=== PATIENT | female | born 1950 ===

== ENCOUNTER 2023-09-01 13:45 | Outpatient (RCR) | payer MEDICARE, OTHER, SELFPAY ==
--- NOTE | 2023-07-31 16:40 | ST.OPIE ---
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 Bashir Antonio Reason for Referral Dysphonia Setting Setting Outpatient Care Patient History Patient History Pt is a 73 year old female seen this date foor voice evaluation. She was referred d /t throat irritation and vocal hoarseness that has been occurring on and off for a couple years. PMHx signficant for anxiety. She was referred by an ENT who reports no evidence of malignancy or morbid diseases from the level of the vocal cords superiorly and suspects hoarsness and irritation may be d/t incompletely treated reflux. She lives at home with her . [place] Langauge Language(s) Spoken in the Home [place] first language, primarily speaks in [place] Occupational Status Occupation Status Retired Previous Therapy Previous Speech-Language Therapy No Subjective Subjective Pt reports voice issues have been occurring on and off for about 1-2 years, with mild hoarseness, throat irritation pointing to her mid neck or at the level of the sternal notch. She states a tickle will lead to a cough 2 or 3 times per day where she has to gargle salt water to resolve it. She states she has a low voice and has trouble projecting. She states that her voice will become more hoarse and irritated the more she talks, which causes her pain. She states her throat pain will be around a 6/10. She reports she took a medication for reflux for 2 weeks and has not seen improvements and currently does not take any other meds for GERD. She denies hx of drinking or smoking and consumes water throughout the day and 1 decaf tea. She states she was educated by the ENT on reflux precautions and eats a healthy diet, walks daily and sleeps with a wedge. She reports her voice issue hasn't necessarily caused any changes in her social life, however she states it makes her personally uncomfortable. - Laryngeal Performance S/Z Ratio S/Z Ratio 1.5 Functional for Speech Yes Reduced Laryngeal Function Relative to Yes Respiration Voice Handicap Index Function Subtotal 20 Physical Subtotal 17 Emotional Subtotal 11 Total Score 48 Severity Moderate (31-60) Maximum Phonation Time MPT Norms: Women (15-25) Men (25-35) Loudness (50-60 dB); Speaking Rate: Oral Reading of Sentences (190 Words Per Minute); Oral Reading of Paragraphs (160-170 WPM); Speaking Rate in Conversation (150-250 WPM) Maximum Phonation Time About 6 seconds Maximum Phonation Time Reduced Maximum Phonation Time Comments Pt demonstrated MPT of around 6 seconds with cues to take a deep breath through her nose and sustain /ah/ as long as she can. Norms for women range from 15-25 seconds. She denies ever feeling SOB. 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 S:Z ratio may also indicate potential vocal pathology. She scored 48 on the voice handicap index, indicating a severity rating of moderate in regards to how her voice impact different aspects of her daily life. She specifically reported that she almost always tends to avoid groups of people because of her voice, speaks to friends, neighbors or relatives less often because of her voice, feels as through she as to strain to produce voice and notices her voice is worse in the evening. Her voice is characterized by slight hoarseness, and low volume. Prognosis Rehabilitation Potential Excellent - Recommendations Treatment Recommended Yes Treatment Frequency/Duration 1x/week for [address] recommends Pt participate in voice therapy in order to be educated on vocal hygiene techniques, reflux precautions , vocal function exercises, circumlaryngeal massage and diaphragmatic breathing techniques Short Term Goals STG 1: Pt will identify healthy voice alternatives and ways to promote vocal health in 100% of opportunities. STG 2: Patient will complete vocal exercises (i.e. vocal glides, phonation sustains, diaphragmatic breathing) to improve vocal quality and patient's overall intelligibility of verbal communication. STG 3: Patient will demonstrate knowledge with reflex precautions with 100% accuracy independently. STG 4: Patient will utilize circumlaryngeal massage technique independently with 100% accuracy. Usp Goals LTG 1: Pt will improve vocal quality with use of vocal hygiene/reflux precautions as well as vocal exercises and relaxation exercises. Patient/Caregiver Education Patient/Family Education Described results of evaluation,Patient Understanding
--- NOTE | 2023-07-31 16:41 | ST.OP.POCP ---
Physical, Occupational & Speech Therapy At [facility] Visit Care Team Role Provider Type Bashir Antonio MD Attending Provider Physician Referring Provider Address: [address] [place] [address] [place], [id number] Speech Pathology Plan of Care Patient History Pt is a 73 year old female seen this date foor voice evaluation. She was referred d/t throat irritation and vocal hoarseness that has been occurring on and off for a couple years. PMHx signficant for anxiety. She was referred by an ENT who reports no evidence of malignancy or morbid diseases from the level of the vocal cords superiorly and suspects hoarsness and irritation may be d/t incompletely treated reflux. She lives at home with her . [place] Goals LTG 1: Pt will improve vocal quality with use of vocal hygiene/reflux precautions as well as vocal exercises and relaxation exercises. Electronically Signed by: SHEILA Sheth 07/31/23 [id number] If you are in agreement with this Plan of Care, please return a signed and dated copy. I have reviewed this Plan of Care and certify that the skilled therapy services above are required to meet the patient?s needs. Physician Signature Date Printed Name and Credentials Clinical Instructor Signature Printed Name and Credentials
--- NOTE | 2023-08-13 14:25 | ST.OPTN ---
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 She was referred d /t throat irritation and vocal hoarseness that has been occurring on and off for a couple years. PMHx signficant for anxiety. She was referred by an ENT who reports no evidence of malignancy or morbid diseases from the level of the vocal cords superiorly and suspects hoarsness and irritation may be d/t incompletely treated reflux. She lives at home with her . Subjective Observations/Patient Presentation Pt arrived to therapy on time. She reports no changes to her voice. She will be traveling to [place] until August 25 and will be seen when she returns. Objective Mcc Goals LTG 1: Pt will improve vocal quality with use of vocal hygiene/reflux precautions as well as vocal exercises and relaxation exercises. Treatment Activities Vocal function exercises, diaphragmatic breathing exercises, circumlaryngeal massage, neck stretches Assessment Assessment of Improvement ST provided Pt with several home exercise handouts including diaphragmatic breathing exercises, neck stretches, vocal function exercises and circumlaryngeal massage. ST provided explanations and reason for all exercises and provided a demonstration and visual models. Pt completed exercises with 100% accuracy. She reported mild difficulty completing diaphragmatic breathing, however after some practice got the hang of it. Her voice seemed clear quality , however low volume and pitch . She sustained /ah/ and /ee/ for about 5-6sec. ST recommended Pt complete exercises 2-3x/day 5-10x reps for each exercise and to return to next session with any questions or concerns with exercises. ST communicated with Pt's referring ENT, Dr. Antonio, in regards to recommendation for her to be referred for a GI doctor d/t hx of reflux.
--- NOTE | 2023-09-01 14:26 | ST.OPTN ---
Visit Care Team Role Provider Type Bashir Antonio MD Attending Provider Physician Referring Provider Address: [address] [place] [address], [id number] DIRECTOR OF CASEWORK DEPARTMENT Treatment Note DIRECTOR OF CASEWORK DEPARTMENT Treatment Note Start: 08/13/23 14:16 Freq: Status: Active Protocol: Document 09/01/23 14:21 MA (Rec: 09/01/23 14:26 MA [id number]) Speech Pathology Treatment Note Session Time Visit Start Time 13:45 Visit Stop Time 14:15 Total Visit Minutes 30 Visit Information Visit Number 3 Plan of Care Dates 07/31/23-10/29/23 Insurance Information Medicare Visit Type Note Type Discharge Summary General Information Patient History Pt is a 73 year old female seen this date foor voice evaluation. She was referred d /t throat irritation and vocal hoarseness that has been occurring on and off for a couple years. PMHx signficant for anxiety. She was referred by an ENT who reports no evidence of malignancy or morbid diseases from the level of the vocal cords superiorly and suspects hoarsness and irritation may be d/t incompletely treated reflux. She lives at home with her . Subjective Observations/Patient Presentation Pt arrived to therapy on time. She reports little irritation in throat and that it has gotten much better. She states she tries to adhere to gerd precautions and doest voice exercises and diaphragmatic breathing. She states she has a GI appointment in November. She requested today be her last visit d/t her voice improving slightly and her voice issue may be d/t reflux and will address issues with GI doctor. Objective Short Term Goals STG 1: Pt will identify healthy voice alternatives and ways to promote vocal health in 100% of opportunities.- MET STG 2: Patient will complete vocal exercises (i.e. vocal glides, phonation sustains, diaphragmatic breathing) to improve vocal quality and patient's overall intelligibility of verbal communication.- MET, however Pt continues with reduced sustained phonation time. She reports diaphragmatic breathing helps and she continues to practice it. STG 3: Patient will demonstrate knowledge with reflex precautions with 100% accuracy independently.- MET STG 4: Patient will utilize circumlaryngeal massage technique independently with 100% accuracy. - MET Deputy [employer] Marshal Goals LTG 1: Pt will improve vocal quality with use of vocal hygiene/reflux precautions as well as vocal exercises and relaxation exercises. - MET Treatment Activities Vocal function exercises, diaphragmatic breathing exercises, circumlaryngeal massage, neck stretches, discharge recommendations Assessment Patient Response to Treatment Excellent Rehab Potential Excellent Progress Towards Goals Goals Met,Appropriate for Discharge Assessment of Improvement Pt completed exercises with 100% accuracy. She reported mild difficulty completing diaphragmatic breathing, however after some practice got the hang of it. Her voice seemed clear quality, however low volume and pitch. She sustained /ah/ and /ee/ for about 5-6sec. ST recommended Pt complete exercises 2-3x/day 5-10x reps for each exercise and to return to next session with any questions or concerns with exercises. ST recommends she f/u with GI and ENT. Pt verbalized understanding. ST informed Pt she may return to therapy if voice difficulties become worse. Reviewed with Patient Home Exercise Program Plan Therapy Recommendations Discharge from Speech Therapy Suggested Referral ENT,GI
== END 2023-09-08 10:46 | disposition home or self-care (01) ==
LOC: SP 13:45
PROVIDERS: Referring Provider Otolaryngology; Visit Provider Otolaryngology
DX: R05.3 Chronic cough (principal); J39.2 Other diseases of pharynx; R49.0 Dysphonia
CPT/HCPCS: 92507; 92523